=== PATIENT | female | born 1960 | race African-American/Black ===

== ENCOUNTER 2017-09-17 17:34 | Emergency (ER) | payer OTHER ==
[2017-09-17] MEDS ORDERED: IBUPROFEN 800 MG TABLET PO ONE (20:09)
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
[2017-09-17 21:04] VITALS: BP 150/95
== END 2017-09-17 21:03 | disposition home or self-care (01) ==
LOC: ER 17:34
DX: S16.1XXA Strain of muscle, fascia and tendon at neck level, initial encounter (principal); S09.90XA Unspecified injury of head, initial encounter; S80.02XA Contusion of left knee, initial encounter; M54.6 Pain in thoracic spine; M79.1 Myalgia; M54.5 Low back pain; V73.6XXA Passenger on bus injured in collision with car, pick-up truck or van in traffic accident, initial encounter
CPT/HCPCS: 70450; 72070; 72110; 72125; 99284

== ENCOUNTER → 2018-01-21 | Outpatient (CLI) | payer MEDICARE, MEDICAID ==
--- NOTE | 2018-01-25 14:26 | WOMENS IMAGING REPORT ---
EXAM DESCRIPTION: BILAT SCREENING MAMMO W/CAD COMPLETED DATE/TIME: 01/21/2018 10:09 am REASON FOR STUDY: ROUTINE BILATERAL SCREENING;Z12.31 Z12.31 ENCNTR SCREEN MAMMOGRAM FOR MALIGNANT N EOPLASM OF ESVIN COMPARISON: 2015 outside facility. TECHNIQUE: Standard craniocaudal and mediolateral oblique views of each breast recorded using Plastic Jungle[employer] l acquisition. LIMITATIONS: None. FINDINGS: No masses, calcifications or architectural distortion. No areas of suspicion. Read with the assistance of CAD. .[facility] - R2 Cenova Version 1.3 .[facility] - R2 Cenova Version 1.3 .[facility] - R2 Cenova Version 2.4 .[facility]2 Cenova Version 2.4 .[facility] - R2 Latex Dipper Version 9.2 IMPRESSION: NORMAL MAMMOGRAM. BIRADS 1. BREAST DENSITY: c. The breasts are heterogeneously dense, which may obscure small masses. BIRAD: 1 NEGATIVE RECOMMENDATION: ROUTINE SCREENING COMMENT: The patient has been notified of the results by letter per SA requirements. Additional no tification policies are in place for contacting patient with suspicious or incomplete findings. Quality ID #[id number]: The [employer] recommends an annual screening mammogram for women aged 40 years or over. This facility utilizes a reminder system to ensure that all patients receive reminder letters, and/or direct phone calls for appointments. This includes reminders for routine scr eening mammograms, diagnostic mammograms, or other Breast Imaging Interventions when appropriate. Th is patient will be placed in the appropriate reminder system. The [employer] (ACR) has developed recommendations for screening MRI of the breast s in certain patient populations, to be used in conjunction with mammography. Breast MRI surveillanc e may be appropriate for women with more than 20% lifetime risk of developing breast cancer as deter mined by genetic testing, significant family history of the disease, or history of mantle radiation f or Hodgkins Disease. ACR Practice Guidelines 2008. TECHNICAL DOCUMENTATION: FINDING NUMBER: (1) ASSESSMENT: (1) JOB ID: [id number] [employer]- All Rights Reserved Reading location - IP/workstation name: [facility]
== END ==
LOC: WI 09:41
PROVIDERS: ATTEND Nurse Practitioner Family
DX: Z12.31 Encounter for screening mammogram for malignant neoplasm of breast (principal)
CPT/HCPCS: 77067

== ENCOUNTER 2018-11-24 12:23 | Emergency (ER) | payer OTHER, MEDICARE, MEDICAID ==
[2018-11-24] MEDS ORDERED: ONDANSETRON 4 MG TAB.RAPDIS PO ONE (13:24)
[2018-11-24] MEDS ORDERED: KETOROLAC TROMETHAMINE 60 MG/2 ML SDV IM ONE (13:24)
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
[2018-11-24 14:49] VITALS: BP 149/78
== END 2018-11-24 14:48 | disposition home or self-care (01) ==
LOC: ER 12:23
DX: S16.1XXA Strain of muscle, fascia and tendon at neck level, initial encounter (principal); R51 Headache; M54.89 Other dorsalgia; M79.10 Myalgia, unspecified site; V49.40XA Driver injured in collision with unspecified motor vehicles in traffic accident, initial encounter; I10 Essential (primary) hypertension; Z87.891 Personal history of nicotine dependence
CPT/HCPCS: 99283; 96372; 70450; 72125; J1885; S0119

== ENCOUNTER 2019-01-18 10:45 | Emergency (ER) | payer MEDICARE, MEDICAID ==
[2019-01-18 10:54] VITALS: BP 113/68
[2019-01-18] MEDS ORDERED: ACETAMINOPHEN 325 MG TABLET PO ONE (11:01)
--- NOTE | 2019-01-18 11:04 | ER Document Report ---
HPI - HPI Time Seen by Provider: 01/18/19 11:01 Pain Level: 5 Notes: Patient is a 58-year-old female no significant past medical history aside from hypertension who presents complaining of left lateral ankle pain and swelling status post twist injury last night. Patient states that she was on roller skates and went to turn and twisted her ankle. She has been able to limp since then. Denies drug allergies. No other concerns or complaints. She is not on any blood thinners. No loss conscious or head injury. Denies any headache, fever, head injury, neck pain, changes in vision/speech/mentation/hearing, URI, sore throat, chest pain, palpitations, syncope, cough, shortness of breath, wheeze, dyspnea, abdominal pain, nausea/vomiting/diarrhea, urinary retention, dysuria, hematuria, loss of control of bowel or bladder, numbness/tingling, saddle anesthesia, muscle paralysis/weakness, or rash. - ROS Systems Reviewed and Negative: Yes All other systems reviewed and negative - CONSTITUTIONAL Constitutional: DENIES: Fever, Chills - REPRODUCTIVE Reproductive: DENIES: : - MUSCULOSKELETAL Musculoskeletal: REPORTS: Extremity pain - L ankle Past Medical History - Social History Smoking Status: Never Smoker Chew tobacco use (# tins/day): No Frequency of alcohol use: None Drug Abuse: None Family History: CAD, Hyperlipidemia, Hypertension, Malignancy Patient has suicidal ideation: No Patient has homicidal ideation: No - Past Medical History Cardiac Medical History: Reports: Hx Hypercholesterolemia, Hx Hypertension Renal/ Medical History: Denies: Hx Peritoneal Dialysis GI Medical History: Reports: Hx Colonoscopy Musculoskeletal Medical History: Reports Hx Arthritis, Reports Hx Musculoskeletal Deformity - Back problems sciatica Psychiatric Medical History: Reports: Hx Bipolar Disorder, Hx Depression Past Surgical History: Reports: Other - Lipoma removed - Immunizations Immunizations up to date: Yes Hx Diphtheria, Pertussis, Tetanus Vaccination: Yes Vertical Provider Document - CONSTITUTIONAL Agree With Documented VS: Yes Notes: PHYSICAL EXAMINATION: GENERAL: Well-appearing, well-nourished and in no acute distress. LUNGS: Breath sounds clear to auscultation bilaterally and equal. No wheezes rales or rhonchi. HEART: Regular rate and rhythm without murmurs, rubs, gallops. Musculoskeletal: Lt foot/ankle: + lateral malleolar swelling. No ecchymosis or deformity. FROM to passive/active. Strength 5+/5. N/V intact distal. + tenderness to the lateral malleolus. No bony tenderness of the foot. Achilles intact. Lis Franc maneuver neg. Anterior drawer neg. Extremities: No cyanosis, clubbing, or edema b/l. Peripheral pulses 2+. Capillary refill less than 3 seconds. NEUROLOGICAL: Normal speech, limping gait. Normal sensory, motor exams PSYCH: Normal mood, normal affect. SKIN: Warm, Dry, normal turgor, no rashes or lesions noted. - INFECTION CONTROL TRAVEL OUTSIDE OF THE [place] IN LAST 30 DAYS: No Course - Re-evaluation Re-evalutation: 01/18/19 Patient is an afebrile, well-hydrated, 58-year-old female who presents to the ED with a fracture to the distal left fibula. Vitals are acceptable without any significant tachycardia, tachypnea, or hypoxia. PE is otherwise unremarkable for any neurovascular compromise, obvious tendon/ligament rupture, open fracture, septic joint. See XR result. Splint applied today and sling provided. Tylenol given p.o. Patient is nontoxic-appearing. No other labs or imaging warranted at this time based on H&P. Conservative measures otherwise for symptoms. Recheck with your PCM in 3-5 days. Call orthopedics today/tomorrow to schedule an appointment for further evaluation and management. Return to the ED with any worsening/concerning symptoms otherwise as reviewed in discharge. Patient is in agreement. - Vital Signs Vital signs: Temp Pulse Resp BP Pulse Ox 98.4 F 85 17 113/68 96 01/18/19 10:52 01/18/19 10:52 01/18/19 10:52 01/18/19 10:52 01/18/19 10:52 Procedures - Immobilization Left Ankle Pre-Proc Neuro Vasc Exam: Normal Immobilizer type: Posterior ankle Performed by: PCT Post-Proc Neuro Vasc Exam: Normal, Unchanged from pre-exam Discharge - Discharge Clinical Impression: Closed fracture of left distal fibula Qualifiers: Encounter type: initial encounter Fracture morphology: unspecified fracture morphology Qualified Code(s): S82.832A - Other fracture of upper and lower end of left fibula, initial encounter for closed fracture Condition: Stable Disposition: HOME, SELF-CARE Instructions: Splint Precautions ([facility]), Fracture of Distal Fibula ([facility]) Additional Instructions: Rest, Ice, Compression, Elevation Use crutches/splint as directed Tylenol/ibuprofen as needed F/u with your PCP in 3-5 days for a recheck Call orthopedics today/tomorrow to schedule an appointment for further obed luation and management Return to the ED with any worsening symptoms and/or development of fever, headache, chest pain, palpitations, syncope, shortness of breath, trouble breathing, abdominal pain, n/v/d, muscle weakness/paralysis, numbness/tingling, swelling, redness, or other worsening symptoms that are concerning to you. Prescriptions: Ibuprofen [Ibu] 800 mg PO TID PRN #15 tablet PRN Reason: Referrals: ALFREDO VEGA FNP-C [Primary Care Provider] - Follow up as needed [facility] [Provider Group] - Follow up in 3-5 days DIPTI VALDEZ MD [ACTIVE PROVISIONAL STAFF] - Follow up as needed
--- NOTE | 2019-01-18 11:30 | RADIOLOGY REPORT (SQ) ---
EXAM DESCRIPTION: ANKLE LEFT COMPLETE COMPLETED DATE/TIME: 01/18/2019 11:16 am REASON FOR STUDY: left ankle pain s/p injury COMPARISON: None. NUMBER OF VIEWS: Three views. TECHNIQUE: AP, lateral, and oblique radiographic images acquired of the left ankle. LIMITATIONS: None. FINDINGS: MINERALIZATION: Normal. BONES: Nondisplaced oblique fracture through the distal fibula. JOINTS: No effusions. SOFT TISSUES: No soft tissue swelling. No foreign body. OTHER: No other significant finding. IMPRESSION: Nondisplaced fracture of the distal fibula. TECHNICAL DOCUMENTATION: JOB ID: [id number] [employer]- All Rights Reserved Reading location - IP/workstation name: [email or web address]
== END 2019-01-18 11:31 | disposition home or self-care (01) ==
LOC: ER 10:45
DX: S82.435A Nondisplaced oblique fracture of shaft of left fibula, initial encounter for closed fracture (principal); M25.572 Pain in left ankle and joints of left foot; X50.0XXA Overexertion from strenuous movement or load, initial encounter; Y93.51 Activity, roller skating (inline) and skateboarding; Y92.331 Roller skating rink as the place of occurrence of the external cause; I10 Essential (primary) hypertension
CPT/HCPCS: 73610; 29515; A9270; 99283

== ENCOUNTER → 2019-01-24 | Outpatient (CLI) | payer MEDICARE, MEDICAID ==
--- NOTE | 2019-01-24 16:32 | WOMENS IMAGING REPORT ---
EXAM DESCRIPTION: BILAT SCREENING MAMMO W/CAD COMPLETED DATE/TIME: 01/24/2019 12:10 pm REASON FOR STUDY: Z12.31 SCREENING MAMMO Z12.31 ENCNTR SCREEN MAMMOGRAM FOR MALIGNANT NEOPLASM OF B RE COMPARISON: 2018 EXAM PARAMETERS: Standard craniocaudal and mediolateral oblique views of each breast recorded using digital acquisition. Read with the assistance of CAD. .[facility] - [employer] Attendant Version 9.2 LIMITATIONS: None. FINDINGS: No suspicious masses, suspicious calcifications or architectural distortion. No areas of c oncern. IMPRESSION: Negative MAMMOGRAM. BIRADS 1 BREAST DENSITY: d. The breasts are extremely dense, which lowers the sensitivity of mammography. BIRAD: ASSESSMENT: 1 NEGATIVE RECOMMENDATION: ROUTINE SCREENING COMMENT: The patient has been notified of the results by letter per [place] requirements. Additional no tification policies are in place for contacting patient with suspicious or incomplete findings. Quality ID #225: The [employer] recommends an annual screening mammogram for women aged 40 years or over. This facility utilizes a reminder system to ensure that all patients receive reminder letters, and/or direct phone calls for appointments. This includes reminders for routine scr eening mammograms, diagnostic mammograms, or other Breast Imaging Interventions when appropriate. Th is patient will be placed in the appropriate reminder system. TECHNICAL DOCUMENTATION: FINDING NUMBER: (1) ASSESSMENT: (1) JOB ID: [id number] [employer]- All Rights Reserved Reading location - IP/workstation name: [email or web address]
== END ==
LOC: WI 11:50
PROVIDERS: ATTEND Nurse Practitioner Family
DX: Z12.31 Encounter for screening mammogram for malignant neoplasm of breast (principal)
CPT/HCPCS: 77067

== ENCOUNTER 2019-03-16 06:28 | Day surgery (SDC) | payer MEDICARE, MEDICAID ==
[~2019-03-16 06:28] MED LIST: CEFAZOLIN 1 GM/D5W RTU 1 GM/50 ML RTUPB IV PRN; LIDOCAINE 0.5% INJ-PF (5 MG/ML) 50 ML SDV SUBCUT PRN; RINGERS SOLUTION,LACTATED 1,000 ML IV PRN
[2019-03-16] MEDS ORDERED: BUPIVACAINE HCL 0.5 % INJ/PF 30 ML SDV ONE (07:13)
[2019-03-16] MEDS ORDERED: NORMAL SALINE INJ/PF 0.9% 10 ML SDV ONE (07:13)
[2019-03-16] MEDS ORDERED: LIDOCAINE 2% INJ (20 MG/ML) 20 ML MDV ONE (07:13)
[2019-03-16] MEDS ORDERED: ONDANSETRON HCL INJ/PF 4 MG/2 ML SDV ONE (07:16)
[2019-03-16] MEDS ORDERED: FENTANYL CITRATE INJ/PF 100 MCG/2 ML AMPUL ONE (07:16)
[2019-03-16] MEDS ORDERED: PROPOFOL INJ 200 MG/20 ML VIAL IV ONE (07:17)
[2019-03-16] MEDS ORDERED: MIDAZOLAM 2 MG/2 ML INJ ONE (07:17)
[2019-03-16] MEDS: BACITRACIN INJ 50,000 UNIT VIAL ONE ×2 (08:11→08:15)
[2019-03-16] MEDS: POLYMYXIN B SULFATE INJ 500000 UNIT VIAL ONE ×2 (08:12→08:15)
--- NOTE | 2019-03-16 09:22 | Operative Report ---
Operative Report DATE OF SURGERY: 03/16/19 PREOPERATIVE DIAGNOSIS: Sesamoiditis right hallux POSTOPERATIVE DIAGNOSIS: Sesamoiditis right hallux OPERATION: Excision of sesamoid interphalangeal joint right hallux SURGEON: ROMANA GARRIDO 1ST RETAIL PRICING COORDINATOR: RANDY MOTA ANESTHESIA: LMAC TISSUE REMOVED OR ALTERED: Sesamoid right hallux COMPLICATIONS: None ESTIMATED BLOOD LOSS: Less then 0.1 mL INTRAOPERATIVE FINDINGS: Sesamoid measuring 1 cm x 0.5 cm right hallux PROCEDURE: Following induction of regional IV and local anesthesia the right foot and leg were prepped and draped in the usual sterile manner. A pneumatic tourniquet was placed around the right ankle and inflated to 250 mg after exsanguination of the limb via Esmarch bandage. The following surgical procedure was then performed. Excision of sesamoid interphalangeal joint right hallux Attention was directed to the medial aspect of the right hallux where an approximately 2 cm linear incision was made. The incision was deepened via sharp dissection. A capsular incision was made in the same manner as the original skin incision. The capsule was reflected medially and laterally from the bone thus bringing into view the interphalangeal joint. The sesamoid at the plantar aspect of the interphalangeal joint was identified, isolated, sharply incised and removed in toto from the wound. An x-ray was taken and it was noted that there was no evidence of the sesamoid. The area was then flushed with copious amounts of an antibacterial saline solution. The capsule was then coaptated and maintained utilizing simple interrupted sutures of 3-0 Vicryl. The subcutaneous tissue was coaptated and maintained utilizing simple interrupted sutures of 4-0 Vicryl. The skin was coapted and maintained utilizing horizontal mattress sutures of 5-0 nylon. A dry sterile dressing was then applied consisting of: Oen's silk 4 x 4's conform Kerlix and Coban. The pneumatic tourniquet was released it was noted that all digits are warm and viable and the patient was transferred to the recovery room.
--- NOTE | 2019-03-16 09:23 | RADIOLOGY REPORT (SQ) ---
EXAM DESCRIPTION: TOE RIGHT; NO CHG FLUORO COMPLETED DATE/TIME: 03/16/2019 8:45 am; 03/16/2019 8:44 am REASON FOR STUDY: SESAMOID EXCISION OF THE RIGHT HALLUX M24.174 OTHER ARTICULAR CARTILAGE DISORDERS , RIGHT FOOT COMPARISON: None. FLUOROSCOPY TIME: 5 seconds. 3 images saved to PACS. TECHNIQUE: Intra-operative images acquired during surgical procedure to evaluate progress. NUMBER OF IMAGES: 3 images. LIMITATIONS: None. FINDINGS: Images of the toe acquired during procedure. IMPRESSION: IMAGE(S) OBTAINED DURING PROCEDURE. COMMENT: Quality ID 145: Final reports for procedures using fluoroscopy that document radiation exp osure indices, or exposure time and number of fluorographic images (if radiation exposure indices are not available) Please consult full operative report of the attending physician for description of the procedure. TECHNICAL DOCUMENTATION: JOB ID: [id number] [employer]- All Rights Reserved Reading location - IP/workstation name: [email or web address]
--- NOTE | 2019-03-16 09:23 | RADIOLOGY REPORT (SQ) ---
EXAM DESCRIPTION: TOE RIGHT; NO CHG FLUORO COMPLETED DATE/TIME: 03/16/2019 8:45 am; 03/16/2019 8:44 am REASON FOR STUDY: SESAMOID EXCISION OF THE RIGHT HALLUX M24.174 OTHER ARTICULAR CARTILAGE DISORDERS , RIGHT FOOT COMPARISON: None. FLUOROSCOPY TIME: 5 seconds. 3 images saved to PACS. TECHNIQUE: Intra-operative images acquired during surgical procedure to evaluate progress. NUMBER OF IMAGES: 3 images. LIMITATIONS: None. FINDINGS: Images of the toe acquired during procedure. IMPRESSION: IMAGE(S) OBTAINED DURING PROCEDURE. COMMENT: Quality ID 145: Final reports for procedures using fluoroscopy that document radiation exp osure indices, or exposure time and number of fluorographic images (if radiation exposure indices are not available) Please consult full operative report of the attending physician for description of the procedure. TECHNICAL DOCUMENTATION: JOB ID: [id number] [employer]- All Rights Reserved Reading location - IP/workstation name: [email or web address]
--- NOTE | 2019-03-16 09:26 | PDOC DISCHARGE SUMMARY ---
Discharge Summary-[facility] Discharge Summary: Date of admission: March 16, 2019 Date of discharge: March 16, 2019 Preoperative diagnosis: sesamoiditis right hallux. Surgical procedure: excision of sesamoid interphalangeal joint right hallux. Postoperative diagnosis: Sesamoiditis right hallux. Surgeon: Lea Tao D.P.M. Mgmt Consultant: Ham Lozano D.P.M. Patient was admitted to [facility] with a chief complaint of a painful area under her right big toe,she stated been there for several years and it was very difficult for her to wear shoes. X-rays were taken and it was noted that there was a sesamoid at the interphalangeal joint of the right hallux. Patient desired to have this sesamoid surgically removed and underwent the above surgical procedure. She was discharged with a postoperative shoe, and ice pack, postoperative instructions, and postoperative prescriptions for Percocet 5/325mg #20 and Phenergan 25 mg #10. She was given a follow-up appointment in the doctor's office in 1 week.
== END 2019-03-16 09:34 | disposition home or self-care (01) ==
LOC: SC 06:28
PROVIDERS: ATTEND Podiatrist Foot Surgery
DX: M25.871 Other specified joint disorders, right ankle and foot (principal)
CPT/HCPCS: 73660; 01480; 28315; J2250; J3490 ×5; J0690; J3010; J2405; J2704

== ENCOUNTER → 2020-01-30 | Outpatient (CLI) | payer MEDICARE, MEDICAID ==
--- NOTE | 2020-01-30 16:39 | WOMENS IMAGING REPORT ---
EXAM DESCRIPTION: 3D SCREENING MAMMO BILAT IMAGES COMPLETED DATE/TIME: 01/30/2020 1:48 pm REASON FOR STUDY: Z12.31 ENCNTR SCREEN MAMMOGRAM FOR MALIGNANT NEOPLASM OF BREAST Z12.31 ENCNTR SCR EEN MAMMOGRAM FOR MALIGNANT NEOPLASM OF ESVIN COMPARISON: 2018 and subsequent. EXAM PARAMETERS: Views: Standard craniocaudal and mediolateral oblique views of each breast recorded using digital acquisition and breast tomosynthesis. Read with the assistance of CAD. .[facility] - [employer] Quality Assurance Coordinator Version 9.2 LIMITATIONS: None. FINDINGS: No suspicious masses, suspicious calcifications or architectural distortion. No areas of c oncern. IMPRESSION: NEGATIVE MAMMOGRAM. BIRADS 1. BREAST DENSITY: c. The breasts are heterogeneously dense, which may obscure small masses. BIRAD: ASSESSMENT: 1 NEGATIVE RECOMMENDATION: ROUTINE SCREENING COMMENT: The patient has been notified of the results by letter per MQSA requirements. Additional no tification policies are in place for contacting patient with suspicious or incomplete findings. Quality ID #225: The [employer] recommends an annual screening mammogram for women aged 40 years or over. This facility utilizes a reminder system to ensure that all patients receive reminder letters, and/or direct phone calls for appointments. This includes reminders for routine scr eening mammograms, diagnostic mammograms, or other Breast Imaging Interventions when appropriate. Th is patient will be placed in the appropriate reminder system. TECHNICAL DOCUMENTATION: FINDING NUMBER: (1) ASSESSMENT: (1) JOB ID: [id number] [employer]- All Rights Reserved Reading location - IP/workstation name: [email or web address]
== END ==
LOC: WI 13:18
PROVIDERS: ATTEND Nurse Practitioner Family
DX: Z12.31 Encounter for screening mammogram for malignant neoplasm of breast (principal)
CPT/HCPCS: 77063; 77067